=== PATIENT | female | born 1975 | race Caucasian/White ===

== ENCOUNTER 2017-05-14 18:07 | Emergency (ER) | payer BC ==
[~2017-05-14] VITALS: Ht 157.5 cm; Wt 99.8 kg
--- NOTE | ~2017-05-14 | CT2 ---
[facility] A Service of [facility] RADIOLOGY TEXT RESULTS PATIENT: SUKI NICHOLSON LOCATION: SED : 71 UNIT #: [id number] AGE: [address]: MIKEY ESTRADA SEX: F ORDER DR: [id number] [address] [address] [id number] MR#: [id number] Acc #: [id number] NAME: SUKI NICHOLSON. : 1975 SEX: F STUDY DATE/TIME: 05/14/2017 21:12 UNIT: SED ROOM: STUDY DESCRIPTION: CT Abd and Pelv W Cont Attending Physician: Mikey Estrada A.P.R.N. Ordering Physician: Mikey Estrada A.P.R.N. Primary Care Physician: Heather Acevedo M.D. MEDICAL IMAGING REPORT This report is preliminary unless electronic signature is present. EXAM CT abdomen and pelvis with oral and IV contrast HISTORY Upper abdomen pain today. TECHNIQUE This CT exam was performed with one or more of the following radiation dose reduction techniques: automatic control, adjustment of mA and/or kV according to patient size, and iterative reconstruction. FINDINGS CT abdomen and pelvis was performed with oral and IV contrast. CT ABDOMEN: Small hiatal hernia. Fatty infiltration of the liver. Mild peripancreatic stranding about the medial margin of the pancreatic head. No adjacent fluid collection. No pancreatic ductal dilatation. Findings suggest mild focal acute pancreatitis. The spleen, kidneys, and adrenal glands are normal. Normal caliber abdominal aorta. CT PELVIS: No pelvic mass or fluid collection. The uterus and adnexa are unremarkable. IMPRESSION 1. Findings are characteristic of mild focal pancreatitis along the medial and anterior margins of the pancreatic head where there is focal inflammatory stranding. However, there are no adjacent peripancreatic fluid collections and no pancreatic ductal dilatation. 2. No free fluid in the remainder the abdomen or pelvis. 3. Fatty infiltration of the liver. Cholecystectomy. [facility] A Service of [facility] RADIOLOGY TEXT RESULTS PATIENT: SUKI NICHOLSON LOCATION: SED : 71 UNIT #: [id number] AGE: [address]: MIKEY ESTRADA SEX: F ORDER DR: Dictated by... Lamonte Corley M.D. THIS IS AN ELECTRONICALLY VERIFIED REPORT Lamonte Corley M.D. at 05/15/2017 6:10 PM [employer]/mya TD: 05/15/2017 04:38 JOB #: [id number] MEDICAL IMAGING REPORT Page 1 of 1
[~2017-05-14 18:07] MED LIST: ADVAIR 250-501 EACH IH; ADVAIR 2501 DISK W/D PO; ADVAIR 500-501 EACH IH; ADVAIR INH; ALBUTEROL 0.5ML; ALBUTEROL17 G1 IH; ALBUTEROL17 GM INH; ALPRAZOLAM PO; AMBIEN PO; AMITRYPTYLINE PO; ATROVENT HFA12.9 G1 IH; BENZONATATE200 M1; BIRTH CONTROL PILL; BIRTH CONTROL PILL PO; COLESTID PO; COZAAR100 MG PO; CYTOMEL PO; CYTOMEL5 MCG; CYTOMEL50 MCG PO; DICYCLOMINE HCL20 MG PO; FIORICET; FIORICET W/CODE1 CAP PO; FLEXERIL PO; FLEXERIL10 MG PO; FLONASE 0.05% N16 G1; FLONASE16 GM; HYZAAR PO; IMODIUM2 MG PO; JOLESSA PO; LEVOTHYROXINE112 MCG PO; LEVOXYL PO; LEVOXYL0.137 MG PO; LEXAPRO PO; LEXAPRO20 MG PO; LISINOPRIL PO; LORTAB 10-3251 EACH PO; LORTAB 5/500 TA1 TA1 PO; LOSARTAN-HCTZ1 EAC2 PO; NAMENDA10 MG PO; NASONEX17 GM; NORCO 5/325 TAB1 TAB PO; OMEPRAZOLE40 M1 PO; PERCOCET5/325 PO; PHENERGAN25 MG PO; PREDNISONE; PREDNISONE PO; PREDNISONE10 MG PO; QUASENSE1 BLIST PA PO; ROBITUSSIN A-C10 ML PO; SEASONALE1 BLIST PA PO; SINGULAIR; SINGULAIR PO; SKELAXIN PO; SYMBICORT; SYNTHROID PO; SYNTHROID125 PO; TAMIFLU75 M1; VERAMYST10 GM; VITAMIN D; VITAMIN D250000 UNIT PO; XANAX0.5 M1 PO; ZITHROMAX PO; ZYRTEC-D T1 TAB.SR . PO; ZYRTEC10 M4; [UNRECOGNIZED DRUG - OTHER] PO
[2017-05-14] MEDS ORDERED: DULERA 100 MCG/13 GM (18:20)
[2017-05-14 19:16] LABS: URINE SOURCE CLEAN CATCH
[2017-05-14 19:18] LABS: URINE APPEARANCE CLEAR; URINE BILIRUBIN NEG (NEG); URINE BLOOD TRACE-INTACT (NEG); URINE COLOR AMBER; URINE GLUCOSE NEG (NORM); URINE KETONE NEG (NEG); URINE LEUKOCYTE ESTERASE NEG (NEG); URINE NITRATE NEG (NEG); URINE PH 5.5 (5-8); URINE PROTEIN TRACE (NEG); URINE SPECIFIC GRAVITY >=1.030 (1.003-1.035); URINE UROBILINOGEN 0.2 MG/DL (NORM)
[2017-05-14 19:21] LABS: MICRO INDICATED? YES
[2017-05-14 19:25] LABS: CULTURE INDICATED? YES; URINE AMORPHOUS SEDIMENT AMORP URATES; URINE BACTERIA 3+ (NEG); URINE MUCUS PRESENT; URINE SQUAMOUS EPITHELIAL CELL MODERATE /[HPF]
[2017-05-14 19:26] LABS: BASOPHIL# 0.1 X10e3 (0-0.3); BASOPHIL% 1.1 % (0-2.5); EOSINOPHIL# 0.3 X10e3 (0-0.7); EOSINOPHIL% 2.2 % (0.0-7.0); HEMATOCRIT 39.5 % (35.0-45.0); HEMOGLOBIN 12.8 gm/dL (12.0-16.0); LYMPHOCYTE# 2.3 X10e3 (1.0-3.5); LYMPHOCYTE% 17.2 % (17.0-45.0); MEAN CELL VOLUME 85.9 FL (83-96); MEAN CORPUSCULAR HEMOGLOBIN 27.9 PG (28-34); MEAN CORPUSCULAR HGB CONC 32.4 g/dL (30-36); MEAN PLATELET VOLUME 7.7 FL (6.5-11.5); MONOCYTE# 1.1 X10e3 (0-1.0); MONOCYTE% 8.3 % (3.0-12.0); NEUTROPHIL# 9.4 X10e3 (1.5-7.1); NEUTROPHIL% 71.2 % (40-75); PLATELET COUNT 415 X10e3 (140-420); RED CELL DISTRIBUTION WIDTH 14.9 % (11.0-15.5); WHITE BLOOD COUNT 13.2 X10e3 (4.0-10.5)
[2017-05-14 19:27] LABS: DIFF IND NO
[2017-05-14 19:37] LABS: ALBUMIN SERUM 3.5 g/dL (3.5-5.0); BILIRUBIN,TOTAL 0.5 mg/dL (0.2-2.0); BUN/CREATININE RATIO 11.42; CALCIUM SERUM 8.9 mg/dL (8.4-10.2); CREATININE SERUM 0.7 mg/dL (0.6-1.4); GLOM FILT RATE Estimated 106.1 mL/min (>60); POTASSIUM 3.4 mmol/L (3.5-5.1); PROTEIN TOTAL SERUM 7.4 g/dL (6.0-8.3)
== END 2017-05-15 01:16 ==
LOC: SED 18:07
PROVIDERS: Nurse Practitioner
DX: K85.90 Acute pancreatitis without necrosis or infection, unspecified (principal); Z90.49 Acquired absence of other specified parts of digestive tract; J45.909 Unspecified asthma, uncomplicated; Z88.2 Allergy status to sulfonamides; Z88.8 Allergy status to other drugs, medicaments and biological substances; Z88.0 Allergy status to penicillin; Z88.1 Allergy status to other antibiotic agents
CPT/HCPCS: 36415; 74177; 80053; 81003; 82150; 83690; 84703; 85025; 87086; 96361; 96374; 96375; 99285; C9113; J2270; J2405; J2550; Q9967